=== PATIENT | female | born 1945 | race Hispanic/Latino ===

== ENCOUNTER → 2017-08-20 | Outpatient (CLI) | payer SELFPAY | END | disposition home or self-care (01) | LOC: RAH 11:21 | PROVIDERS: ATTEND Internal Medicine Cardiovascular Disease | DX: Z13.6 Encounter for screening for cardiovascular disorders (principal) | CPT/HCPCS: 75571 ==

== ENCOUNTER → 2018-07-10 | Outpatient (CLI) | payer OTHER | END | disposition home or self-care (01) | LOC: RAH 08:02 | PROVIDERS: ATTEND Family Medicine | DX: Z12.31 Encounter for screening mammogram for malignant neoplasm of breast (principal) | CPT/HCPCS: 77067 ==

== ENCOUNTER → 2021-02-08 | Outpatient (CLI) | payer OTHER | END | disposition home or self-care (01) | LOC: RAH 14:32 | PROVIDERS: ATTEND Family Medicine | DX: Z12.31 Encounter for screening mammogram for malignant neoplasm of breast (principal) | CPT/HCPCS: 77067 ==